=== PATIENT | male | born 1980 | race Caucasian/White ===

== ENCOUNTER 2024-01-14 12:11 | Emergency (ER) | payer SELFPAY ==
[2024-01-14] VITALS (20 sets, daily range): BP systolic 107–131; BP diastolic 68–90; PULSE 80–175; RESP 14–35; TEMP 36.7; O2SAT 95–99
--- NOTE | 2024-01-14 12:12 | XR_ITS ---
WS: [id number] XR chest 1V portable 14088 REASON FOR EXAM: cp FINDINGS: The chest is unchanged compared to 04/18/2018. The heart is mildly enlarged. There is calcified granulomas disease bilaterally. No acute pulmonary parenchymal or pleural abnormality is identified. Moderate degenerative spondylosis in the mid and lower thoracic spine. XR/XR chest 1V portable [id number] IMPRESSION: Stable chest with mild cardiomegaly. No acute abnormality.
--- NOTE | 2024-01-14 12:12 | ECG_ITS ---
[facility] Date: 2024-01-14 Pat Name: Caleb Molina Department: Room: Gender: Male Complex Case Manager: : 1980 Requested By: Virgil Astorga Order Number: [id number] Raul MD: Arnol Bowman M.D. Measurements Intervals [place] Rate: 172 P: 0 NE: 0 QRS: 33 QRSD: 86 T: -1 QT: 264 QTc: 447 Interpretive Statements ATRIAL FIBRILLATION WITH RAPID VENTRICULAR RESPONSE Compared to ECG 04/18/2018 17:39:05 Sinus rhythm no longer present Sinus arrhythmia no longer present ST (T wave) deviation no longer present Early repolarization no longer present Electronically Signed On 01-15-2024 21:39:59 PIN MACHINE TENDER by Arnol Bowman M.D. [id number]
--- NOTE | 2024-01-14 12:33 | ED_ITS ---
HPI - Chest Pain 2 General: Chief Complaint: Chest Pain Stated Complaint: CHEST PAIN Time Seen by Provider: 01/14/24 12:19 Source: patient Mode of arrival: ambulatory Limitations: no limitations History of Present Illness: 43-year-old male states that since last night he has been having palpitations along with chest pain and shortness of breath. No history of any arrhythmias or heart disease. He is heart rate here is in the 170s appears to be A-fib with RVR. No history of A-fib he denies any recent illness or fever denies any vomiting diarrhea Associated symptoms: Reports dyspnea and palpitations; Deny abdominal pain, fever(s), nausea or vomiting Related Data Home Medications Medication Instructions Recorded Confirmed No Known Home Medications 01/14/24 01/14/24 Allergies Allergy/AdvReac Type Severity Reaction Status Date / Time tramadol Allergy ALGY-Difficulty Verified 01/14/24 12:29 Breathing Review of Systems 2 Const: Denies: fever(s), chills, body aches or change in appetite ENMT: Denies: throat pain or dental pain Card: Reports: chest pain and palpitations Resp: Reports: dyspnea GI: Denies: abdominal pain, nausea, vomiting or diarrhea Musc: Denies: neck pain or back pain Skin/Breast: Denies: rash Neuro: Denies: headache(s) Physical Exam 2 Const: COMMON NORMALS: patient oriented x3 HENMT: COMMON NORMALS: normocephalic and atraumatic HEAD & SCALP: n ormocephalic and atraumatic Eye: COMMON NORMALS: conjunctivae normal CONJUNCTIVA: Yes conjunctivae normal Neck/C-Spine: COMMON NORMALS: full ROM and supple Chest: COMMONS NORMALS: normal inspection of the chest Resp: COMMON NORMALS: normal respiratory effort, No retractions, No use of accessory muscles and clear to auscultation bilaterally AUSCULTATION: clear to auscultation bilaterally Cardio: COMMON NORMALS: regular rhythm and No murmurs present (Cardio) R ATE: tachycardic RHYTHM: regular rhythm Extremity: COMMON NORMALS: normal to inspection and full ROM Neuro: COMMON NORMALS: patient oriented x3, moves all extremities and no focal motor deficits Psych: COMMON NORMALS: mental status grossly normal, Normal thought process present and cooperative THOUGHT PROCESS: Normal thought process present Skin: COMMON NORMALS: no rashes or lesions noted and no wounds GENERAL SKIN EXAM: no rashes or lesions noted Course 2 Vital Signs: Vital signs: Vital Signs Temperature 98.1 F 01/14/24 12:24 Pulse Rate 96 01/14/24 13:20 Respiratory Rate 15 01/14/24 13:15 Blood Pressure 129/73 01/14/24 14:30 Pulse Oximetry 95 01/14/24 14:30 Oxygen Delivery Me thod Room Air 01/14/24 12:42 MDM - Chest Pain Medical Decision Making Patient presents here with A-fib with RVR patient is a binge drinker could be a holiday heart he converted here with 10 of Cardizem I strongly recommended admission as he never had A-fib in the past he states that he is not able to stay states he has dogs he has to take care of patient signed out AMA we will get him cardiology follow-up he understands the risks of signing out AMA I informed if he changes his mind or worsens he is to return he understands agrees to plan Medical Records I reviewed the patient's medical records. Lab Data I reviewed the patient's lab results. 01/14/24 12:26 01/14/24 12:26 Radiology Impressions Chest X-Ray 01/14/24 12:12 IMPRESSION: Stable chest with mild cardiomegaly. No acute abnormality. Laboratory Results WBC 19.98 10^3/uL (3.29-11.43) H 01/14/24 12:26 RBC 5.24 10^6/uL (3.85-5.65) 01/14/24 12:26 Hgb 15.10 g/dL (11.27-16.99) 01/14/24 12:26 Hct 47.7 % (37-53) 01/14/24 12:26 MCV 91.0 fl (82-101) 01/14/24 12:26 MCH 28.8 pg (27-33) 01/14/24 12:26 MCHC 31.7 g/dL (30-55) 01/14/24 12:26 RDW 14.1 % (12.1-15.1) 01/14/24 12:26 Plt Count 281 10^3/cmm (157-399) 01/14/24 12:26 MPV 10.7 fL (7.4-10.4) H 01/14/24 12:26 Neut % (Auto) 81.3 % 01/14/24 12:26 Lymph % (Auto) 9.9 % 01/14/24 12:26 [place] % (Auto) 8.1 % 01/14/24 12:26 Eos % (Auto) 0.1 % 01/14/24 12:26 Baso % (Auto) 0.2 % 01/14/24 12:26 Neut # (Auto) 16.28 10^3/uL (1.8-7.7) H 01/14/24 12:26 Lymph # (Auto) 2.0 10^3/uL (0.8-4.8) 01/14/24 12:26 [place] # (Auto) 1.6 10^3/uL (0.2-0.9) H 01/14/24 12:26 Eos # (Auto) 0.0 10^3/uL (0.0-0.8) 01/14/24 12: Baso # (Auto) 0.0 10^3/uL (0.0-0.1) 01/14/24 12:26 Nucleated RBC % (auto) 0 % 01/14/24 12: Nucleated RBCs # 0.0 /100WBC 01/14/24 12: PT 13.00 SECONDS (12.1-14.9) 01/14/24 12:26 INR 0.95 (0.8-1.2) 01/14/24 12:26 Sodium 135 mmol/L (136-145) L 01/14/24 12:26 Potassium 4.8 mmol/L (3.5-5.1) 01/14/24 12:26 Chloride 99 mmol/L (98-107) 01/14/24 12:26 Carbon Dioxide 20 mmol/L (22-29) L 01/14/24 12:26 Anion Gap 20.8 (5-19) H 01/14/24 12:26 BUN 18 mg/dL (6-20) 01/14/24 12:26 Creatinine 1.1 mg/dL (0.7-1.2) 01/14/24 12:26 GFR Calculation 73.1 mL/min (90-130) L 01/14/24 12:26 Glucose 164 mg/dL (65-115) H 01/14/24 12:26 Calculated Osmolality 286 mOsm/kg (285-295) 01/14/24 12:26 Calcium 9.4 mg/dL (8.5-10.5) 01/14/24 12:26 Total Bilirubin 0.7 mg/dL (0.15-1.2) 01/14/24 12:26 AST 32 U/L (0-40) 01/14/24 12:26 ALT 77 U/L (0-41) H 01/14/24 12:26 Alkaline Phosphatase 89 U/L (40-130) 01/14/24 12:26 Troponin T Baseline 61 ng/L (0-15) H 01/14/24 12:26 Troponin T 120 Minute 70.16 ng/L (0-15) H 01/14/24 14:18 Delta Troponin T 9.16 ABS# (0-10) 01/14/24 14:18 NT-Pro-B Natriuret Pep 918 pg/mL (0-125) H 01/14/24 12:26 Total Protein 6.9 g/dL (6.6-8.7) 01/14/24 12:26 Albumin 4.5 g/dL (3.5-5.2) 01/14/24 12:26 Globulin 2.4 g/dL (1.3-4.6) 01/14/24 12:26 Lipase 26 U/L (13-60) 01/14/24 12:26 Ethyl Alcohol < 10 mg/dL (0-10) 01/14/24 12:26 All radiology interpretation(s) finalized by discharge EKG Data EKG 1: I personally reviewed and interpreted this EKG as follows: EKG interpretation date: 01/14/24 EKG interpretation time: 12:17 Interpretation: afib with rvr hr [address] elevation qrs 81 qtc 352 EKG 2: I personally reviewed and interpreted this EKG as follows: EKG interpretation date: 01/14/24 EKG interpretation time: 13:14 Interpretation: nsr hr [address] elevation qrs 83 qtc 396 Discharge Plan Discharge Patient Disposition: Left Against Medical Advice Clinical Impression: Atrial fibrillation with RVR Condition: Stable Prescriptions: No Action No Known Home Medications Referrals: Camden Sherman MD [Physician] - 4-7 days Discharge Diet: Advance as tolerated Discharge Activity: Resume usual activity Patient Instructions: A-fib (Atrial Fibrillation) (ED) Coding Level of Care Code ED Pharmacy Scheduler for Janice Cornell
[2024-01-14] MEDS: dilTIAZem 5 mg/mL SDV 5 mL 10 MG IVP (12:36)
[2024-01-14] MEDS: sodium chloride 0.9% 1,000 ML 999 ML IV (12:37)
[2024-01-14 12:42] LABS: Basophils % 0.2 %; Eosinophils % 0.1 %; Hematocrit 47.7 % (37-53); Lymphocytes % 9.9 %; Mean Corpuscular HGB Conc 31.7 g/dL (30-55); Mean Corpuscular Hemoglobin 28.8 pg (27-33); Mean Platelet Volume 10.7 fL (7.4-10.4); Monocytes # 1.6 10^3/uL (0.2-0.9); Monocytes % 8.1 %; Neutrophils # 16.28 10^3/uL (1.8-7.7); Neutrophils % 81.3 %; Nucleated Red Blood Cells % 0 %; Platelet Count 281 10^3/cmm (157-399); Red Blood Count 5.24 10^6/uL (3.85-5.65); Red Cell Distribution Width 14.1 % (12.1-15.1); White Blood Count 19.98 10^3/uL (3.29-11.43)
--- NOTE | 2024-01-14 12:45 | ECG_ITS ---
[facility] Date: 2024-01[facility]14 Pat Name: Caleb Molina Department: Room: Gender: Male Teacher Public Health: : 1980 Requested By: Virgil Astorga Order Number: [id number] Raul MD: Arnol Bowman M.D. Measurements Intervals [place] Rate: 175 P: 0 TN: 0 QRS: 25 QRSD: 81 T: 14 QT: 258 QTc: 441 Interpretive Statements ATRIAL FIBRILLATION WITH RAPID VENTRICULAR RESPONSE NONSPECIFIC T-WAVE ABNORMALITY Compared to ECG 04/18/2018 17:39:05 T-wave abnormality now present Sinus rhythm no longer present Sinus arrhythmia no longer present ST (T wave) deviation no longer present Early repolarization no longer present Electronically Signed On 01-15-2024 21:41:31 OLEO HASHER AND RENDERER by Arnol Bowman M.D. [id number]
[2024-01-14 12:48] LABS: INR 0.95 (0.8-1.2)
[2024-01-14 12:54] LABS: Alanine Aminotransferase 77 U/L (0-41); Albumin Level 4.5 g/dL (3.5-5.2); Alkaline Phosphatase 89 U/L (40-130); Aspartate Amino Transferase 32 U/L (0-40); Blood Urea Nitrogen 18 mg/dL (6-20); Calcium 9.4 mg/dL (8.5-10.5); Carbon Dioxide 20 mmol/L (22-29); Chloride 99 mmol/L (98-107); Creatinine Clr Calc Pharmacy 107.6014; Globulin 2.4 g/dL (1.3-4.6); Glomerular Filtration Rate 73.1 mL/min (90-130); Glucose 164 mg/dL (65-115); Lipase 26 U/L (13-60); Osmolality Calculated 286 mOsm/kg (285-295); Sodium 135 mmol/L (136-145); Total Bilirubin 0.7 mg/dL (0.15-1.2); Total Protein 6.9 g/dL (6.6-8.7)
[2024-01-14 12:55] LABS: Troponin(5th) Baseline 61 ng/L (0-15)
[2024-01-14 12:56] LABS: Alcohol Level < 10 mg/dL (0-10)
[2024-01-14 12:57] LABS: Anion Gap 20.8 (5-19); Potassium 4.8 mmol/L (3.5-5.1)
[2024-01-14] MEDS: aspirin 81 mg Chew Tablet 162 MG PO (13:20)
[2024-01-14 13:26] LABS: NT Pro B Type Natriuretic Pept 918 pg/mL (0-125)
[2024-01-14 14:45] LABS: Troponin 5 2HR 70.16 ng/L (0-15); Troponin 5 2HR Delta 9.16 ABS# (0-10)
--- NOTE | 2024-01-14 18:12 | ECG_ITS ---
[facility] Date: 2024-01[facility]14 Pat Name: Caleb Molina Department: Room: Gender: Male Inspector [employer]: : 1980 Requested By: Virgil Astorga Order Number: [id number] Raul MD: Arnol Bowman M.D. Measurements Intervals [place] Rate: 89 P: 64 MT: 160 QRS: 45 QRSD: 83 T: 15 QT: 349 QTc: 426 Interpretive Statements SINUS RHYTHM NONSPECIFIC T-WAVE ABNORMALITY Compared to ECG 01/14/2024 12:25:42 T-wave abnormality now present Atrial fibrillation no longer present Electronically Signed On 01-15-2024 21:59:15 PHOTOGRAPHER PORTRAIT by Arnol Bowman M.D. [id number]
--- NOTE | 2024-01-18 01:06 | DCPLANNER ---
Message sent to Cardiology for follow up afib
== END 2024-01-14 15:20 | disposition left against medical advice (07) ==
PROVIDERS: Emergency Provider Emergency Medicine
DX: I48.20 Chronic atrial fibrillation, unspecified (principal)
CPT/HCPCS: 36415; 71045; 80053; 80307; 83690; 83880; 84484; 85025; 85610; 93005; 96374; 99285; J3490; J7030